=== PATIENT | female | born 1965 | race Asian ===

== ENCOUNTER 2024-08-29 10:02 | Day surgery (SDC) | payer OTHER ==
[2024-08-29] MEDS ORDERED: PROPOFOL 20 ML ONE (10:42)
[2024-08-29 10:47] VITALS: BMI 21.7
[2024-08-29 11:38] VITALS: TEMP 98
[2024-08-29 11:40] VITALS: RESP 19
[2024-08-29 11:41] VITALS: BP 121/59; PULSE 81
== END 2024-08-29 11:41 | disposition home or self-care (01) ==
LOC: FASU-ENDO 10:02
PROVIDERS: ATTEND Internal Medicine Gastroenterology
PROC: 0DB78ZX Excision of Stomach, Pylorus, Via Natural or Artificial Opening Endoscopic, Diagnostic (ICD-10-PCS; 2024-08-29)
PROC: 0DB48ZX Excision of Esophagogastric Junction, Via Natural or Artificial Opening Endoscopic, Diagnostic (ICD-10-PCS; 2024-08-29)
PROC: 0DB98ZX Excision of Duodenum, Via Natural or Artificial Opening Endoscopic, Diagnostic (ICD-10-PCS; principal; 2024-08-29 10:53)
DX: K29.50 Unspecified chronic gastritis without bleeding (principal); K20.90 Esophagitis, unspecified without bleeding
CPT/HCPCS: 82962; 88305-TC; 88342-TC